=== PATIENT | male | born 1960 | race Caucasian/White ===

== ENCOUNTER 2018-09-17 10:31 | Day surgery (SDC) | payer BC, OTHER ==
[~2018-09-17 10:31] MED LIST: Buffered Lidocaine 1% SYRIN* 1 ML/SYRINGE INTRADERM ONE; Lactated Ringers 1000 ML Bag* 1,000 ML IV SCH
[2018-09-17] MEDS ORDERED: Bupivacaine 0.25% SDV PF* 10 ML VIAL INJ ONE (12:20)
[2018-09-17] MEDS ORDERED: fentaNYL* 50 MCG/ML 2 ML VIAL (100 MCG VIAL) ONE (12:48)
[2018-09-17] MEDS ORDERED: Midazolam* 1 MG/ML 2 ML VIAL (2 MG) ONE (12:48)
[2018-09-17] MEDS ORDERED: Naloxone* 0.4 MG/ML 1 ML VIAL IV PRN (13:02)
[2018-09-17 13:33] VITALS: BP 133/96
--- NOTE | 2018-09-17 20:34 | OP ---
DATE OF OPERATION: 09/17/18 - [facility] DATE OF : 62. SURGEON: Daniel Burgess MD DENTAL LABORATORY MANAGER: None. ANESTHESIOLOGIST: Dr. Feltcher. ANESTHESIA: Local MAC. PRE-OP DIAGNOSIS: Left ring finger dorsal PIP soft tissue mass. POST-OP DIAGNOSIS: Left ring finger dorsal ganglion cyst emanating off the PIP joint. OPERATIVE PROCEDURE: Excision of left ring finger soft tissue mass. INDICATIONS: Tj has the mass, it is right over the dorsum of the joint, it is very symptomatic; and, whenever he bumps it, it is very tender. We talked about risks and benefits. He had wanted to have it excised. He understands the risk of stiffness. ESTIMATED BLOOD LOSS: 1 mL. COMPLICATIONS: None. FINDINGS: See above and below. DESCRIPTION OF PROCEDURE: Tj was seen in the preoperative holding area. The correct site, side, and procedure were identified. We came back to the operating room where he had some anesthesia and a digital block was performed. The arm was prepped and draped in the usual fashion and a time-out was performed. A Tourni-Cot was placed on the left ring finger and this was left on throughout the case. I made a curvilinear incision over the dorsal ulnar aspect of the left ring finger PIP joint. The full thickness flap was raised off the mass. It seemed to be a ganglion emanating off the PIP joint and coming from between a split in the extensor tendon between the lateral band and the central slip. The marginal excision was performed. This was tracked down deep to the tendon, all the way down to the joint. Once I was at the level of the joint capsule, I amputated the cyst and handed this off to the specimen. I then took the Bovie and cauterized the joint capsule where the cyst was originating. The wound was then irrigated out. The split in the extensor tendon was repaired with a couple of 5-0 Prolene sutures with the knots buried. The skin was closed with 4-0 nylon suture. Soft dressings were applied. The Tourni-Cot was released and he was taken to the recovery room in stable condition. [id number] #: [id number] MTDD
== END 2018-09-17 14:10 | disposition home or self-care (01) ==
LOC: OREAST 10:31
PROVIDERS: ATTEND Orthopaedic Surgery Hand Surgery
DX: M67.442 Ganglion, left hand (principal); I10 Essential (primary) hypertension; E78.00 Pure hypercholesterolemia, unspecified; Z87.891 Personal history of nicotine dependence; E11.9 Type 2 diabetes mellitus without complications; Z79.84 Long term (current) use of oral hypoglycemic drugs
CPT/HCPCS: 88304; J2250; J3010; J3490